=== PATIENT | female | born 1970 | race Caucasian/White ===

== ENCOUNTER 2017-03-25 12:30 | Day surgery (SDC) | payer OTHER, BC ==
[~2017-03-25] VITALS: Ht 181.6 cm; Wt 127.8 kg
[2017-03-25] MEDS ORDERED: FENTANYL PF 100 MCG/2ML ONE (13:09)
[2017-03-25] MEDS ORDERED: MIDAZOLAM 1 MG/ML, 2ML ONE (13:09)
[2017-03-25] MEDS ORDERED: LACTATED RINGERS 1,000 ML IV SCH (13:25)
[2017-03-25 13:30] VITALS: BP 155/75
[2017-03-25 13:46] LABS: HCG UR LOT HCG706132
[2017-03-25 13:54] LABS: HCG UR OBC PASS
[2017-03-25] MEDS ORDERED: SILVER NITRATE STICK TP ONE (13:55)
[2017-03-25] MEDS ORDERED: ONDANSETRON 2MG/ML, 2ML ONE (14:14)
[2017-03-25] MEDS ORDERED: ROCURONIUM 10 MG/ML,10ML ONE (14:14)
[2017-03-25] MEDS ORDERED: DEXAMETHASONE 4 MG/ML, 1ML ONE ×2 (14:26)
[2017-03-25] MEDS ORDERED: SUCCINYLCHOLINE 20 MG/ML, 10ML ONE (14:26)
[2017-03-25] MEDS ORDERED: PROPOFOL 10 MG/ML, 20ML ONE (14:26)
[2017-03-25] MEDS ORDERED: KETOROLAC 30 MG/1 ML ONE (14:40)
[2017-03-25] MEDS ORDERED: PROMETHAZINE 25 MG/ML, 1ML IV PRN (15:00)
[2017-03-25] MEDS ORDERED: ONDANSETRON 2MG/ML, 2ML IVPush PRN (15:00)
[2017-03-25] MEDS ORDERED: HYDROmorphone 1 MG/ML, 1ML IV PRN (15:00)
[2017-03-25] MEDS ORDERED: LABETALOL 5MG/ML, 20ML IV PRN (15:00)
[2017-03-25] MEDS ORDERED: FENTANYL PF 100 MCG/2ML IV PRN (15:00)
[2017-03-25] MEDS ORDERED: hydrALAzine 20 MG/ML, 1ML IV PRN (15:00)
[2017-03-25] MEDS ORDERED: OXYcodone 5 MG/5 ML ORAL.SOL UDC PO PRN (15:00)
[2017-03-25] MEDS ORDERED: MEPERIDINE/PF 25MG/0.5ML IVPush PRN (15:00)
[2017-03-25] MEDS ORDERED: ACETAMINOPHEN 325 MG TABLET PO PRN (15:00)
== END 2017-03-25 16:55 ==
LOC: OUT 12:30
PROVIDERS: ATTEND Obstetrics & Gynecology
DX: N93.9 Abnormal uterine and vaginal bleeding, unspecified (principal); Z98.890 Other specified postprocedural states
CPT/HCPCS: 52356; 81025; J0330; J1100; J1885; J2250; J2405; J2704; J3010; J7120